=== PATIENT | male | born 1975 | race Caucasian/White ===

== ENCOUNTER 2017-03-20 16:43 | Emergency (ER) | payer SELFPAY ==
[~2017-03-20] VITALS: Ht 177.8 cm; Wt 99.0 kg
[2017-03-20 17:10] VITALS: BP 150/75; PULSE 66; RESP 14; TEMP 98; O2SAT 97
--- NOTE | 2017-03-20 18:51 | RADRPT ---
EXAM DATE/TIME: 03/20/2017 18:16 [place] COMPARISON: No previous studies available for comparison. INDICATIONS : Upper back pain. MEDICAL HISTORY : None. SURGICAL HISTORY : None. ENCOUNTER: Initial ACUITY: 2 days PAIN SCORE: 5/10 LOCATION: thoracic spine. FINDINGS: Mild degenerative changes and scoliosis of the thoracic spine are noted. There is no acute compressio n fracture or subluxation of the thoracic spine. CONCLUSION: 1. No acute compression fracture or subluxation. 2. Mild degenerative changes and scoliosis of the thoracic spine. Fan Buitrago MD on March 20, 2017 at 18:48 Board Certified Radiologist. This report was verified electronically.
[2017-03-20] MEDS ORDERED: ROBA500T PO (18:58)
[2017-03-20] MEDS ORDERED: IBUP1TAB7 PO (18:58)
--- NOTE | 2017-03-20 18:59 | PD ---
HPI Chief Complaint: Back/ Neck Pain or Injury Time Seen by Provider: 18:13 Travel History International Travel<30 days: No Contact w/Intl Traveler<30days: No Traveled to known affect area: No History of Present Illness HPI 41-year-old male with mid thoracic pain is 1 day. He reports last night he reached over in bed to grab something off the nightstand and felt a pop in his thoracic spine. He has had pain since. He denies anesthesia or weakness of the extremity. No other symptoms. He denies chest pain, shortness of breath, abdominal pain. Symptom severity is moderate. Worse with twisting of the thorax and flexion and relieved with rest PFSH Past Medical History Medical History: Denies Significant Hx Social History Tobacco Use: No Allergies-Medications (Allergen,Severity, Reaction): Coded Allergies: No Known Allergies (Unverified , 03/20/17) Reported Meds & Prescriptions Reported Meds & Active Scripts Active Robaxin (Methocarbamol) 500 Mg Tab 500 Mg PO TID Ibuprofen 800 Mg Tab 800 Mg PO Q6HR PRN Review of Systems Except as stated in HPI: all other systems reviewed are Neg General / Constitutional: No: Fever Cardiovascular: No: Chest Pain or Discomfort Respiratory: No: Shortness of Breath Physical Exam Narrative GENERAL: Alert well-appearing male in no distress. SKIN: Warm and dry. NECK: Supple, trachea midline. No JVD or lymphadenopathy. CARDIOVASCULAR: Regular rate and rhythm without murmurs, gallops, or rubs. RESPIRATORY: Breath sounds equal bilaterally. No accessory muscle use. GASTROINTESTINAL: Abdomen soft, non-tender, nondistended. MUSCULOSKELETAL: No cyanosis, or edema. Normal strength and sensation of the upper and lower extremities. BACK: Tenderness to thoracic spine and paraspinous musculature. Without obvious deformity. No CVA tenderness. Data Data Last Documented VS Vital Signs Date Time Temp Pulse Resp B/P (MAP) Pulse Ox O2 Delivery O2 Flow Rate FiO2 03/20/17 17:10 98.0 66 14 150/75 (100) 97 Orders Orders Spine, Thoracic-Ap/Lat/Sw(3vw) (03/20/17 ) Ed Discharge Order (03/20/17 18:53) Ketorolac Inj (Toradol Inj) (03/20/17 19:00) MDM Medical Decision Making Medical Screen Exam Complete: Yes Emergency Medical Condition: Yes Differential Diagnosis Thoracic strain, thoracic spine fracture, herniated test. Narrative Course 41-year-old male with mid thoracic pain is 1 day. He reports last night he reached over in bed to grab some the nightstand and felt a pop in his thoracic spine. He has had pain since. He denies procedure weakness of the extremity. He has a normal neurologic exam. He has tenderness to the thoracic spine and paraspinous musculature. X-rays negative for fracture. Patient be treated for thoracic strain. Diagnosis Primary Impression: Strain of thoracic region Qualified Codes: S29.019A - Strain of muscle and tendon of unspecified wall of thorax, initial encounter Referrals: Primary Care Physician Additional Instructions: Avoid heavy lifting or strenuous activity. Use ice and/or heat as needed for comfort. Follow-up the primary doctor. Scripts Methocarbamol (Robaxin) 500 Mg Tab 500 MG PO TID for Muscle Spasm, #12 TAB 0 Refills Prov: Chichi Santiago 03/20/17 Ibuprofen (Ibuprofen) 800 Mg Tab 800 MG PO Q6HR Y for PAIN, #40 TAB 0 Refills Prov: Chichi Santiago 03/20/17 Disposition: 01 DISCHARGE HOME Condition: Stable Chichi Santiago Mar 20, 2017 18:59
[2017-03-20] MEDS ORDERED: KETOROLAC TROMETHAMINE 60 MG/2 ML (IM) VIAL IM ONE (19:00)
== END 2017-03-20 19:14 | disposition home or self-care (01) ==
LOC: PHED 16:43 → PHEFT 19:14
DX: S29.019A Strain of muscle and tendon of unspecified wall of thorax, initial encounter (principal); X58.XXXA Exposure to other specified factors, initial encounter
CPT/HCPCS: 72072; 99283

== ENCOUNTER 2017-06-08 22:29 | Emergency (ER) | payer OTHER ==
[~2017-06-08] VITALS: Ht 177.8 cm; Wt 98.0 kg
[~2017-06-08 22:29] MED LIST: IBUP1TAB7 PO; ROBA500T PO
[2017-06-08 22:46] VITALS: BP 130/82; PULSE 69; RESP 16; TEMP 98.4; O2SAT 98
[2017-06-08 23:46] VITALS: BP 124/79; PULSE 59; RESP 16; O2SAT 96
[2017-06-09 00:15] VITALS: O2SAT 98
[2017-06-09 00:22] LABS: BASOPHIL # 0.1 TH/MM3 (0-0.2); EOSINOPHIL # 0.4 TH/MM3 (0-0.4); EOSINOPHIL % 7.1 % (0.0-4.0); HEMATOCRIT 43.8 % (39.0-51.0); HEMOGLOBIN 15.3 GM/DL (13.0-17.0); LYMPH % 35.8 % (9.0-44.0); LYMPHOCYTE # 2.2 TH/MM3 (1.0-4.8); MEAN CELL VOLUME 96.3 FL (80.0-100.0); MEAN CORPUSCULAR HEMOGLOBIN 33.6 PG (27.0-34.0); MEAN CORPUSCULAR HGB CONC 34.9 % (32.0-36.0); MEAN PLATELET VOLUME 9.4 FL (7.0-11.0); MONO % 7.6 % (0.0-8.0); MONOCYTE # 0.5 TH/MM3 (0-0.9); NEUT % 48.5 % (16.0-70.0); PLATELET COUNT 241 TH/MM3 (150-450); RED BLOOD COUNT 4.55 MIL/MM3 (4.50-5.90); RED CELL DISTRIBUTION WIDTH 12.8 % (11.6-17.2); WHITE BLOOD COUNT 6.2 TH/MM3 (4.0-11.0)
[2017-06-09 00:29] LABS: CHLORIDE 109 MEQ/L (98-107); SODIUM (NA) 141 MEQ/L (136-145)
[2017-06-09 00:32] LABS: CALCIUM 8.4 MG/DL (8.5-10.1)
[2017-06-09 00:33] VITALS: BP_SYST 110; BP_SYST 114; BP_SYST 119; BP_DIAS 52; BP_DIAS 78; BP_DIAS 80; RESP 16
[2017-06-09 00:33] LABS: BICARBONATE 26.7 MEQ/L (21.0-32.0); BLOOD UREA NITROGEN 21 MG/DL (7-18); GLUCOSE,RANDOM 94 MG/DL (74-106)
[2017-06-09 00:35] LABS: PROTHROMBIN TIME - PATIENT 10.2 SEC (9.8-11.6)
[2017-06-09 00:36] LABS: ALT (GPT) 31 U/L (12-78); AST (GOT) 21 U/L (15-37); GLOMERULAR FILTRATION RATE 51 ML/MIN (>89)
[2017-06-09 00:38] LABS: TOTAL BILIRUBIN ADULT 0.8 MG/DL (0.2-1.0); TOTAL PROTEIN 7.2 GM/DL (6.4-8.2)
[2017-06-09 00:39] LABS: ALKALINE PHOSPHATASE 68 U/L (45-117)
[2017-06-09 02:09] VITALS: BP 126/76; PULSE 55; RESP 18; O2SAT 98
--- NOTE | 2017-06-09 02:19 | PD ---
HPI Chief Complaint: GI Complaint Time Seen by Provider: 02:03 Travel History International Travel<30 days: No Contact w/Intl Traveler<30days: No Traveled to known affect area: No History of Present Illness HPI The patient is a 42-year-old male that passed bright red blood in his stool. He has pictures on his cell phone willingly bright red blood. He denies any abdominal pain but does have some very minimal discomfort in the lower quadrants. He denies any syncopal or near syncopal spells. He has never had an episode like this before. He has never had any abdominal surgeries and still has his appendix and gallbladder. The patient has had diverticulitis in the past. [facility] Past Medical History Diminished Hearing: No Diverticulitis: Yes Medical other: Yes (Hemorrhoids) Tetanus Vaccination: > 5 Years Influenza Vaccination: No ?: Not Past Surgical History Other Surgery: Yes (lump removed from right neck) Social History Alcohol Use: No Tobacco Use: Yes (15 cigs per day) Substance Use: No Allergies-Medications (Allergen,Severity, Reaction): Coded Allergies: No Known Allergies (Unverified , 06/08/17) Reported Meds & Prescriptions Reported Meds & Active Scripts Active No Active Prescriptions or Reported Medications Review of Systems Except as stated in HPI: all other systems reviewed are Neg (GENERAL: [-]) Physical Exam Narrative GENERAL: The patient is alert, oriented 3, not anemic appearing in no apparent distress. His vital signs are normal. SKIN: Focused skin assessment warm/dry. HEAD: Atraumatic. Normocephalic. EYES: Pupils equal and round. No scleral icterus. No injection or drainage. ENT: No nasal bleeding or discharge. Mucous membranes pink and moist. NECK: Trachea midline. No JVD. CARDIOVASCULAR: Regular rate and rhythm. No murmur appreciated. RESPIRATORY: No accessory muscle use. Clear to auscultation. Breath sounds equal bilaterally. GASTROINTESTINAL: Abdomen soft, with some minimal discomfort to direct palpation in the lower quadrants, primarily the left lower quadrant., nondistended. Hepatic and splenic margins not palpable. No guarding or rebound is present. MUSCULOSKELETAL: No obvious deformities. No clubbing. No cyanosis. No edema. NEUROLOGICAL: Awake and alert. No obvious cranial nerve deficits. Motor grossly within normal limits. Normal speech. PSYCHIATRIC: Appropriate mood and affect; insight and judgment normal. Data Data Last Documented VS Vital Signs Date Time Temp Pulse Resp B/P (MAP) Pulse Ox O2 Delivery O2 Flow Rate FiO2 06/09/17 00:33 52 16 114/52 (72) 65 16 119/78 (92) 70 16 110/80 (90) 06/09/17 00:15 98 Room Air 06/08/17 22:46 98.4 Orders Orders Complete Blood Count With Diff (06/08/17 23:56) Comprehensive Metabolic Panel (06/08/17 23:56) Prothrombin Time / Inr (Pt) (06/08/17 23:56) Act Partial Throm Time (Ptt) (06/08/17 23:56) Ecg Monitoring (06/08/17 23:56) Orthostatic Vital Signs (06/08/17 23:56) Oximetry (06/08/17 23:56) Oxygen Administration (06/08/17 23:56) Iv Access Insert/Monitor (06/08/17 23:56) Type And Screen (06/08/17 23:56) Labs Laboratory Tests Test 06/09/17 00:05 White Blood Count 6.2 TH/MM3 Red Blood Count 4.55 MIL/MM3 Hemoglobin 15.3 GM/DL Hematocrit 43.8 % Mean Corpuscular Volume 96.3 FL Mean Corpuscular Hemoglobin 33.6 PG Mean Corpuscular Hemoglobin Concent 34.9 % Red Cell Distribution Width 12.8 % Platelet Count 241 TH/MM3 Mean Platelet Volume 9.4 FL Neutrophils (%) (Auto) 48.5 % Lymphocytes (%) (Auto) 35.8 % Monocytes (%) (Auto) 7.6 % Eosinophils (%) (Auto) 7.1 % Basophils (%) (Auto) 1.0 % Neutrophils # (Auto) 3.0 TH/MM3 Lymphocytes # (Auto) 2.2 TH/MM3 Monocytes # (Auto) 0.5 TH/MM3 Eosinophils # (Auto) 0.4 TH/MM3 Basophils # (Auto) 0.1 TH/MM3 CBC Comment DIFF FINAL Differential Comment Prothrombin Time 10.2 SEC Prothromb Time International Ratio 1.0 RATIO Activated Partial Thromboplast Time 26.5 SEC Blood Urea Nitrogen 21 MG/DL Creatinine 1.50 MG/DL Random Glucose 94 MG/DL Total Protein 7.2 GM/DL Albumin 4.0 GM/DL Calcium Level 8.4 MG/DL Alkaline Phosphatase 68 U/L Aspartate Amino Transf (AST/SGOT) 21 U/L Alanine Aminotransferase (ALT/SGPT) 31 U/L Total Bilirubin 0.8 MG/DL Sodium Level 141 MEQ/L Potassium Level 3.5 MEQ/L Chloride Level 109 MEQ/L Carbon Dioxide Level 26.7 MEQ/L Anion Gap 5 MEQ/L Estimat Glomerular Filtration Rate 51 ML/MIN MDM Medical Decision Making Medical Screen Exam Complete: Yes Emergency Medical Condition: Yes Medical Record Reviewed: Yes Interpretation(s) The CBC is normal. The complete metabolic profile shows a BUN of 21, cranial 1.5, GFR 51, calcium 8.4 but is otherwise unremarkable. The coagulation profile is normal. Differential Diagnosis Diverticular bleed, bleeding ulcer, bleeding tumor, hemorrhoids-unlikely, lower GI bleed Narrative Course The patient appears to have had a diverticular bleed. It follows the usual diverticular pattern of a lot of blood initially and then tapering off to virtually nothing. The patient will return if he again passes large amounts of blood. At this time he is not anemic and the amount of blood loss appears to not be able to change his hemoglobin and hematocrit over the next 6-8 hours. He will follow-up with a [facility] primary care physician, call later on today to set up an appointment. Diagnosis Primary Impression: Diverticular hemorrhage Additional Instructions: As we discussed, follow-up with your [facility] primary care physician. If you start to pass large amounts of blood you will need to be checked again in the emergency department. Scripts No Active Prescriptions or Reported Meds Disposition: 01 DISCHARGE HOME Condition: Stable Isaac Tay MD Jun 09, 2017 02:19
== END 2017-06-09 02:51 | disposition home or self-care (01) ==
LOC: PHED 22:29
DX: K57.91 Diverticulosis of intestine, part unspecified, without perforation or abscess with bleeding (principal); F17.210 Nicotine dependence, cigarettes, uncomplicated; Z87.19 Personal history of other diseases of the digestive system
CPT/HCPCS: 80053; 85025; 85610; 85730; 86850; 86900; 86901; 99283